=== PATIENT | male | born 1970 | race Caucasian/White ===

== ENCOUNTER 2017-06-02 19:02 | Emergency (ER) | payer OTHER ==
[~2017-06-02] VITALS: Ht 180.3 cm; Wt 102.1 kg
[~2017-06-02 19:02] MED LIST: AMOX500 PO; ASPI81CH PO; Bactrim Ds Tab1 EACH PO; CYCL10 PO; Cephalexin500 MG PO; HYDACE5 PO; HYDACE5325 PO; IBUP800 PO; LEVFLO500 PO; NAPR500 PO; PROM25 PO; RXHYDACE PO; SULTRIDS PO; TRAM50 PO
[2017-06-02] MEDS ORDERED: Bactrim Ds Tab1 EACH PO (19:58)
== END 2017-06-02 20:07 | disposition home or self-care (01) ==
LOC: ER 19:02
DX: L03.311 Cellulitis of abdominal wall (principal); L03.116 Cellulitis of left lower limb; Z79.899 Other long term (current) drug therapy; F17.210 Nicotine dependence, cigarettes, uncomplicated
CPT/HCPCS: 99283

== ENCOUNTER 2017-06-27 11:56 | Emergency (ER) | payer OTHER ==
[~2017-06-27] VITALS: Ht 182.9 cm; Wt 104.3 kg
[2017-06-27] MEDS ORDERED: Cleocin HCl300 MG PO (12:35)
== END 2017-06-27 12:42 | disposition home or self-care (01) ==
LOC: ER 11:56
DX: L02.416 Cutaneous abscess of left lower limb (principal); F17.200 Nicotine dependence, unspecified, uncomplicated
CPT/HCPCS: 99282

== ENCOUNTER 2018-05-13 12:17 | Emergency (ER) | payer OTHER ==
[~2018-05-13] VITALS: Ht 185.4 cm; Wt 102.1 kg
[~2018-05-13 12:17] MED LIST changes: +Cleocin HCl300 MG PO
[2018-05-13] MEDS ORDERED: Monodox100 MG PO (13:42)
== END 2018-05-13 13:55 | disposition home or self-care (01) ==
LOC: ER 12:17
DX: L01.00 Impetigo, unspecified (principal); F17.210 Nicotine dependence, cigarettes, uncomplicated
CPT/HCPCS: 99282

== ENCOUNTER 2019-12-08 14:58 | Inpatient (IN) | payer OTHER ==
[~2019-12-08] VITALS: Ht 185.4 cm; Wt 104.3 kg
[~2019-12-08 14:58] MED LIST changes: +Monodox100 MG PO
[2019-12-08 15:36] LABS: BASOPHILS ABSOLUTE AUTO 0.07 K/mm3 (0.00-0.23); BASOPHILS PERCENT AUTO 0 % (0-2); EOSINOPHILS ABSOLUTE AUTO 0.17 K/mm3 (0.00-0.68); EOSINOPHILS PERCENT AUTO 1 % (0-6); Hematocrit 51.1 % (37.0-53.0); Hemoglobin 17.6 g/dL (13.5-17.5); IMMATURE GRAN ABSOLUTE AUTO 0.15 K/mm3 (0.00-0.10); IMMATURE GRAN PERCENT AUTO 1 % (0-1); LYMPHOCYTES ABSOLUTE AUTO 2.29 K/mm3 (0.84-5.20); LYMPHOCYTES PERCENT AUTO 12 % (21-46); MONOCYTES ABSOLUTE AUTO 1.58 K/mm3 (0.16-1.47); MONOCYTES PERCENT AUTO 8 % (4-13); Mean Corpuscular HGB 29.7 pg (26.0-34.0); Mean Corpuscular HGB Conc 34.4 g/dL (31.5-36.5); Mean Corpuscular Volume 86 fL (80-100); Mean Platelet Volume 10.6 fL (9.1-12.4); NEUTROPHILS ABSOLUTE AUTO 14.91 K/mm3 (1.96-9.15); NEUTROPHILS PERCENT AUTO 78 % (41-73); Platelet Count 305 K/mm3 (150-400); RDW Coefficient Variation 12.3 % (11.7-14.2); RDW Standard Deviation 38.9 fL (35.1-46.3); Red Blood Cell Count 5.93 M/mm3 (4.30-5.90); White Blood Cell Count 19.17 K/mm3 (4.00-11.30)
[2019-12-08 15:48] LABS: Alanine Aminotransfer (ALT/SGP 56 U/L (12-78); Albumin, Blood 4.8 g/dL (3.4-5.0); Albumin/Globulin Ratio 1.1 (0.8-1.8); Alk Phos 104 U/L (50-136); Anion Gap 11 mmol/L (6-16); Aspartate Aminotrans (AST/SGOT 55 U/L (12-37); Blood Urea Nitrogen 51 mg/dL (8-24); Bun/Creatinine Ratio 20.2 (12.0-20.0); CO2, Blood 20 mmol/L (21-32); Calcium, Blood 9.9 mg/dL (8.5-10.1); Chloride, Blood 108 mmol/L (98-108); Creatinine, Blood 2.52 mg/dL (0.60-1.20); Globulin, Blood 4.2 g/dL (2.2-4.0); Glomerular Filtration Rate 29 (60-); Glucose, Blood 89 mg/dL (70-99); Potassium, Blood 4.8 mmol/L (3.5-5.5); Sodium, Blood 139 mmol/L (136-145); Troponin I <0.015 ng/mL (0.000-0.040)
[2019-12-08 16:11] LABS: Magnesium, Blood 2.8 mg/dL (1.6-2.4)
[2019-12-08 16:35] LABS: Creatine Kinase MB 12.1 ng/mL (0.0-3.6); Creatine Kinase MB Index 0.9 (0.0-4.0)
[2019-12-08 20:19] LABS: U Amphetamine Screen DETECTED; U Barbituate Screen Not Detected; U Benzodiazapine Screen Not Detected; U Buprenorphine Screen Not Detected; U Cannabinoids Screen DETECTED; U Cocaine Screen Not Detected; U Methadone Screen Not Detected; U Methamphetamine Screen DETECTED; U Opiates Screen Not Detected; U Oxycodone Screen Not Detected; U Phencyclidine Screen Not Detected; U Propoxyphene Screen Not Detected
[2019-12-09 02:15] LABS: BASOPHILS ABSOLUTE AUTO 0.06 K/mm3 (0.00-0.23); BASOPHILS PERCENT AUTO 1 % (0-2); EOSINOPHILS ABSOLUTE AUTO 0.42 K/mm3 (0.00-0.68); EOSINOPHILS PERCENT AUTO 4 % (0-6); Hematocrit 43.6 % (37.0-53.0); Hemoglobin 14.8 g/dL (13.5-17.5); IMMATURE GRAN ABSOLUTE AUTO 0.05 K/mm3 (0.00-0.10); IMMATURE GRAN PERCENT AUTO 1 % (0-1); LYMPHOCYTES ABSOLUTE AUTO 2.69 K/mm3 (0.84-5.20); LYMPHOCYTES PERCENT AUTO 27 % (21-46); MONOCYTES ABSOLUTE AUTO 1.12 K/mm3 (0.16-1.47); MONOCYTES PERCENT AUTO 11 % (4-13); Mean Corpuscular HGB 30.5 pg (26.0-34.0); Mean Corpuscular HGB Conc 33.9 g/dL (31.5-36.5); Mean Corpuscular Volume 90 fL (80-100); Mean Platelet Volume 10.2 fL (9.1-12.4); NEUTROPHILS ABSOLUTE AUTO 5.55 K/mm3 (1.96-9.15); NEUTROPHILS PERCENT AUTO 56 % (41-73); Platelet Count 216 K/mm3 (150-400); RDW Coefficient Variation 12.4 % (11.7-14.2); Red Blood Cell Count 4.86 M/mm3 (4.30-5.90); White Blood Cell Count 9.89 K/mm3 (4.00-11.30)
[2019-12-09 02:44] LABS: Alanine Aminotransfer (ALT/SGP 41 U/L (12-78); Albumin, Blood 3.4 g/dL (3.4-5.0); Alk Phos 82 U/L (50-136); Anion Gap 6 mmol/L (6-16); Aspartate Aminotrans (AST/SGOT 36 U/L (12-37); Bilirubin, Total 1.5 mg/dL (0.1-1.0); Blood Urea Nitrogen 43 mg/dL (8-24); Bun/Creatinine Ratio 33.1 (12.0-20.0); CHOL/HDL RATIO 3.8; CO2, Blood 26 mmol/L (21-32); CPK Creatine Kinase 949 U/L (39-308); Chloride, Blood 108 mmol/L (98-108); Cholesterol 165 mg/dL (50-200); Glomerular Filtration Rate >60 (60-); Glucose, Blood 89 mg/dL (70-99); HDL Cholesterol 44 mg/dL (>39); LDL/HDL RATIO 2.4; Low Density Lipoprotein Chol 106 mg/dL (0-110); Magnesium, Blood 2.5 mg/dL (1.6-2.4); Potassium, Blood 3.5 mmol/L (3.5-5.5); Sodium, Blood 140 mmol/L (136-145); Triglycerides 76 mg/dL (30-160); Very Low Density Lipoprot Chol 15 mg/dL (6-32)
[2019-12-09 02:51] LABS: Globulin, Blood 3.4 g/dL (2.2-4.0)
[2019-12-09 02:53] LABS: Calcium, Blood 7.9 mg/dL (8.5-10.1); Total Protein, Blood 6.8 g/dL (6.4-8.2)
[2019-12-09 03:06] LABS: Creatine Kinase MB 9.3 ng/mL (0.0-3.6)
--- NOTE | 2019-12-09 06:45 | NUR ---
ELEVATOR CONDUCTOR SUMMARY PT NEW ADMIT. ARRIVED TO UNIT AT 1938 VIA STRETCHER. A/O X4. INDEPENDENT IN ROOM. INTRODUCED TO STAFF, ROOM, CALL LIGHT SYSTEM. PT DENIES CHEST PAIN, DIZZINESS, NAUSEA. PT DRANK LOTS OF PO FLUIDS OVERNIGHT AND A FEW SNACKS. TOLERATED WELL. NS RUNNING AT 150ML/HR. SLEPT WELL TONIGHT. PLEASANT AND COOPERATIVE. VSS. CALL LIGHT WITHIN REACH. BP TAKEN AT 1943 IS WHEN PT JUST ARRIVED TO UNIT AND GETTING SETTLED. THE REST IS TAKEN WHILE PT AT REST.
[2019-12-09 08:10] LABS: HIV SCREEN 4TH GENERATION WRFX Non Reactive (Non Reactive)
--- NOTE | 2019-12-09 11:01 | NUR ---
ECHOCARDIOGRAM COMPLETED
--- NOTE | 2019-12-09 16:59 | NUR ---
SHIFT SUMMARY PATIENT ALERT, ORIENTED, AND INDEPENDENT IN THE ROOM THIS SHIFT. PATIENT DENIES PAIN THROUGHOUT THIS SHIFT. PATIENT CONTINUES TO BE REHYDRATED WITH IV FLUIDS THIS SHIFT. PATIENT AMBULATED IN THE ORDOÑEZ INDEPENDENTLY. PATIENT LAYING IN BED WATCHING TELEVISION MOST OF THIS SHIFT. PATIENT DENIES FURTHER NEEDS AT THIS TIME.
--- NOTE | 2019-12-10 03:29 | NUR ---
SHIFT SUMMARY PATIENT HAD NO ACUTE CHANGES OBSERVED. AXOX 4 AND INDEPENDENT IN ROOM AND HALLS. PIV REMAINS INTACT. NS INFUSING AT 150 mL/HR. DENIES PAIN, SOB, AND N/V. VSS/AFEBRILE. WATCHED TV FIRST HALF OF SHIFT. REPORTS FEELING BETTER. COOPERATIVE WITH CARE. CALL LIGHT IN REACH. BED IN LOWEST POSITION. WILL CONTINUE TO MONITOR UNTIL DAY SHIFT NURSE ASSUMES CARE.
[2019-12-10 05:15] LABS: BASOPHILS ABSOLUTE AUTO 0.03 K/mm3 (0.00-0.23); BASOPHILS PERCENT AUTO 0 % (0-2); EOSINOPHILS ABSOLUTE AUTO 0.24 K/mm3 (0.00-0.68); EOSINOPHILS PERCENT AUTO 3 % (0-6); Hematocrit 42.1 % (37.0-53.0); Hemoglobin 13.5 g/dL (13.5-17.5); IMMATURE GRAN ABSOLUTE AUTO 0.04 K/mm3 (0.00-0.10); IMMATURE GRAN PERCENT AUTO 1 % (0-1); LYMPHOCYTES ABSOLUTE AUTO 1.84 K/mm3 (0.84-5.20); LYMPHOCYTES PERCENT AUTO 23 % (21-46); MONOCYTES ABSOLUTE AUTO 0.68 K/mm3 (0.16-1.47); MONOCYTES PERCENT AUTO 8 % (4-13); Mean Corpuscular HGB 29.7 pg (26.0-34.0); Mean Corpuscular HGB Conc 32.1 g/dL (31.5-36.5); Mean Corpuscular Volume 93 fL (80-100); Mean Platelet Volume 10.6 fL (9.1-12.4); NEUTROPHILS ABSOLUTE AUTO 5.31 K/mm3 (1.96-9.15); NEUTROPHILS PERCENT AUTO 65 % (41-73); Platelet Count 160 K/mm3 (150-400); RDW Coefficient Variation 12.2 % (11.7-14.2); RDW Standard Deviation 41.8 fL (35.1-46.3); Red Blood Cell Count 4.55 M/mm3 (4.30-5.90); White Blood Cell Count 8.14 K/mm3 (4.00-11.30)
[2019-12-10 05:34] LABS: Alanine Aminotransfer (ALT/SGP 32 U/L (12-78); Albumin, Blood 2.9 g/dL (3.4-5.0); Albumin/Globulin Ratio 0.9 (0.8-1.8); Alk Phos 62 U/L (50-136); Anion Gap 4 mmol/L (6-16); Aspartate Aminotrans (AST/SGOT 25 U/L (12-37); Bilirubin, Total 0.6 mg/dL (0.1-1.0); Blood Urea Nitrogen 18 mg/dL (8-24); Bun/Creatinine Ratio 21.1 (12.0-20.0); CO2, Blood 25 mmol/L (21-32); CPK Creatine Kinase 440 U/L (39-308); Calcium, Blood 7.6 mg/dL (8.5-10.1); Chloride, Blood 113 mmol/L (98-108); Creatinine, Blood 0.85 mg/dL (0.60-1.20); Globulin, Blood 3.2 g/dL (2.2-4.0); Glomerular Filtration Rate >60 (60-); Glucose, Blood 81 mg/dL (70-99); Potassium, Blood 4.2 mmol/L (3.5-5.5); Sodium, Blood 142 mmol/L (136-145); Total Protein, Blood 6.1 g/dL (6.4-8.2)
[2019-12-10 05:56] LABS: Creatine Kinase MB 3.3 ng/mL (0.0-3.6); Creatine Kinase MB Index 0.8 (0.0-4.0)
--- NOTE | 2019-12-10 13:21 | NUR ---
DISCHARGE SUMMARY PT DISCHARGING WITH SELF. A&Ox4 AND INDEPENDENT. DISCUSSED FOLLOW UP APPOINTMENTS NEEDED AND WENT OVER HOW TO APPLY FOR NEW PCP. VERBALIZED DC INSTRUCTIONS. NO FURTHER QUESTIONS. PT LEFT WITH FRIEND. DECLINED WHEELCHAIR ESCORT.
== END 2019-12-10 12:27 | disposition home or self-care (01) | DRG 683 ==
LOC: ER 14:58 → MEDS 19:24
PROVIDERS: Emergency Medicine; Physician Assistant; ADMIT Internal Medicine
DX: N17.9 Acute kidney failure, unspecified (principal); M62.82 Rhabdomyolysis; E86.0 Dehydration; F15.10 Other stimulant abuse, uncomplicated; F17.210 Nicotine dependence, cigarettes, uncomplicated; G89.29 Other chronic pain
CPT/HCPCS: 36415; 71046; 80053; 80061; 82550; 82553; 83605; 83735; 84443; 84484; 85025; 85651; 86704; 87040; 87389; 93005; 93010; 93306; 96361; 96372-59; 96374-59; 99285-25; J1644; J2550; J7030; J7120